=== PATIENT | male | born 1950 | race Hispanic/Latino ===

== ENCOUNTER 2018-09-16 10:26 | Day surgery (SDC) | payer OTHER ==
[~2018-09-16] VITALS: Ht 168.9 cm; Wt 78.0 kg
[2018-09-16 07:28] VITALS: BP 146/72
[2018-09-16 09:27] VITALS: BP 88/46
[2018-09-16 09:31] VITALS: BP 97/46
[2018-09-16 09:36] VITALS: BP 102/55
[2018-09-16 09:41] VITALS: BP 108/58
[2018-09-16 09:50] VITALS: BP 118/68
[~2018-09-16 10:26] MED LIST: ACET325C3 PO; ALBU90AE IH; ASPI-555 PO; ATOR40TA71 PO; CARB15DR87 OP; CLOB30CR5 TP; FENO54TA6 PO; FURO40TA5 PO; GUAI100S13 PO; LEVOTHYROXINE; LISI-613 PO; LORA10CA9 PO; METO25TA6 PO; OMEG-148 PO; PROPOFOL 10 MG/ML 20ML VIAL IV ONE; SODIUM CHLORIDE 0.9% 1000ML 1,000 ML IV ONE; TIOTROPIUM; VIT1CAPS5 PO
== END 2018-09-16 10:30 | disposition home or self-care (01) ==
LOC: DAH 10:26 → ENDO 10:26
PROVIDERS: ATTEND Internal Medicine Gastroenterology
DX: D12.2 Benign neoplasm of ascending colon (principal); D12.5 Benign neoplasm of sigmoid colon; K63.5 Polyp of colon; D50.9 Iron deficiency anemia, unspecified; K44.9 Diaphragmatic hernia without obstruction or gangrene; K21.0 Gastro-esophageal reflux disease with esophagitis; K29.50 Unspecified chronic gastritis without bleeding; I11.0 Hypertensive heart disease with heart failure; I50.9 Heart failure, unspecified
CPT/HCPCS: 43239; 44389; 45380; 45384; 45385; 88305; 93005; A4606; J2704; J7030